=== PATIENT | female | born 1965 | race Caucasian/White ===

== ENCOUNTER 2024-07-15 21:26 | Emergency (ER) | payer BC, SELFPAY ==
[2024-07-15 21:53] VITALS: BP 150/90; PULSE 79; O2SAT 98; BMI 37.8
--- NOTE | 2024-07-15 22:05 | PC.NURSE ---
reaching with right arm
[2024-07-15] MEDS: HYDROCODONE/ACET 5-325 MG TABLET 1 TAB PO (23:11)
[2024-07-15] MEDS: ONDANSETRON 4 MG RAPDIS TABLET SL (23:11)
[2024-07-15] MEDS: KETOROLAC TROMETHAMINE 60 MG/2 ML VIAL IM (23:11)
[2024-07-15] MEDS: ORPHENADRINE 60 MG/2 ML VIAL IM (23:12)
--- NOTE | 2024-07-15 23:12 | ED.BACK1 ---
HPI HPI - Back Pain/Injury General Chief Complaint: Back Pain/Injury Stated Complaint: back pain Time Seen by Provider: 07/15/24 22:34 Source: patient Mode of arrival: walk-in History of Present Illness HPI Narrative: This 58-year-old female presents for evaluation of right mid to lower flank pain that radiates around to her right lower quadrant and into her right buttock. The patient states the symptoms started around 11 PM today. She was working earlier today and doing a job that she does not usually do well though has been doing it more frequently recently. She does have to do a lot of pushing of heavy things at work. She denies any fall. She denies any loss of bowel or bladder control. She has some mild nausea but no vomiting. She denies any urinary symptoms or history of kidney stones. She has no weakness or numbness. No medications were taken prior to arrival. Related Data Allergies Allergy/AdvReac Type Severity Reaction Status Date / Time Penicillins Allergy Severe Anaphylaxis Verified 07/15/24 21:52 Opioid HPI Opioid Management Most Recent Opioid Data: Last Pain Scale 10 07/15/24 23:11 07/15/24 Review of Systems ROS Status of ROS 10 or more systems reviewed and unremarkable except as noted in history and below [facility] Medical History (Updated 07/15/24 @ 23:45 by Lisa Kaye MD) Arthritis ?M19.90 - Unspecified osteoarthritis, unspecified site (ICD-10) Social History Little interest or pleasure in doing things: not at all Feeling down, depressed, or hopeless: not at all Exam Narrative Exam Narrative: Vital signs and Nursing Notes reviewed: Patient has normal pulse, normal respiratory rate, blood pressure is elevated 150/90, she is not hypoxic with pulse ox of 98% on room air General: Awake, alert, oriented, mildly uncomfortable especially with movement on the stretcher, no respiratory distress HEENT: Normocephalic atraumatic, mucous membranes are moist and pink, eyes are clear, normal conjunctiva, vision is grossly intact, posterior pharynx is normal in appearance. Neck: Supple, nontender Chest: Lungs are clear to auscultation with good air entry, there is no wheezing rhonchi or rales appreciated no accessory muscle use, patient is speaking in complete sentences-no chest wall tenderness to palpation CVS: Regular rate and rhythm S1-S2, no murmurs rubs or gallops, pulses are brisk and equal bilaterally ABD: Obese, soft, nondistended, no reproducible tenderness in the right lower quadrant. Mild tenderness to palpation in the right lower lateral flank area. No buttock tenderness Extremities: Moving all extremities, no lower extremity tenderness or swelling noted, negative Homans' sign, pulses are brisk and equal bilaterally Skin: Normal in appearance without rash,pallor, petechiae or purpura Neuro: No focal deficits Constitutional Vital Signs, click to edit/add: Last Vital Signs Pulse 79 07/15/24 21:53 Resp 18 07/15/24 21:53 BP 150/90 H 07/15/24 21:53 Pulse Ox 98 07/15/24 21:53 O2 Del Method Room Air 07/15/24 21:53 Course Vital Signs Vital signs: Vital Signs Pulse Rate 79 07/15/24 21:53 Respiratory Rate 18 07/15/24 21:53 Blood Pressure 150/90 H 07/15/24 21:53 Pulse Oximetry 98 07/15/24 21:53 Oxygen Delivery Method Room Air 07/15/24 21:53 Pulse Rate 79 07/15/24 21:53 Respiratory Rate 18 07/15/24 21:53 Blood Pressure 150/90 H 07/15/24 21:53 Pulse Oximetry 98 07/15/24 21:53 Oxygen Delivery Method Room Air 07/15/24 21:53 MDM - Back Pain/Injury MDM Narrative Medical decision making narrative: This 50-year-old female presents for evaluation of right low back pain that radiates into her right buttock and around in her right lower quadrant that started around 11 PM. The patient has been doing more strenuous activity at work than normal. She has some mild nausea but no vomiting. Pain is worse with movement especially rotatory movement of the torso. She does not have any reproducible tenderness in her abdomen specifically over McBurney's point. He denies any history of kidney stones. She is not having any colicky symptoms. She denies any chest pain or shortness of breath. She has no lower extremity pain or swelling. She denies any weakness numbness or tingling. There is no neurologic symptoms related to her back pain. There is no saddle anesthesia or loss of bowel or bladder control. I was concerned that she may have a kidney stone due to the area of her pain but her urine is negative for blood. It is contaminated with squamous epithelial cells but does not show any signs of acute infection. She was medicated emergency department with IM Toradol, IM Norflex, [place] and Zofran. Evaluation she states she is feeling better and wishes to go home and go to bed. She was encouraged to rest, drink plenty of fluids, do gentle stretching, use moist heat and will be discharged home with prescription for [place], Zofran, Parafon forte and ibuprofen. She was also given a note for work for the next 2 days. She was discharged home with her significant other. Lab Data Labs: Lab Results 07/15/24 Range/Units 22:58 Urine Color Lt. yellow (YELLOW) Urine Clarity Clear (CLEAR) Urine pH 6.0 (5.0-9.0) Ur Specific Lithia <=1.005 A (1.005-1.025) Urine Protein Negative (NEG/TRACE) mg/dL Urine Glucose (UA) Negative (NEGATIVE) mg/dL Urine Ketones Negative (NEGATIVE) mg/dL Urine Occult Blood Negative (NEGATIVE) Urine Nitrite Negative (NEGATIVE) Urine Bilirubin Negative (NEGATIVE) Urine Urobilinogen 0.2 (0.2-1.0) EU/dL Ur Leukocyte Esterase Small A (NEGATIVE) Urine RBC 0-2 (0-2) #/HPF Urine WBC 5-10 A (NONE SEEN) #/HPF Ur Squamous Epith Cells Moderate A (NONE/RARE) #/LPF Ur Transition Epith Cell Rare A (NONE SEEN) #/LPF Urine Crystals None seen (None Seen) #/HPF Urine Bacteria None seen (NONE SEEN) #/HPF Urine Casts None seen (NONE SEEN) #/LPF Urine Mucus None seen (NONE SEEN) Ur Culture Indicated? Yes-[facility] [place] Discharge Plan Discharge Chief Complaint: Back Pain/Injury Clinical Impression: Strain of lumbar region Patient Disposition: Home, Self-Care Time of Disposition Decision: 23:44 Condition: Good Print Language: Arabic Instructions: Low Back Strain (ED), Lower Back Exercises (ED) Referrals: Physician,Non-Staff, MD [Primary Care Provider] - 1 week
[2024-07-15 23:15] LABS: Bilirubin Urine NEGATIVE (NEGATIVE); Blood Urine NEGATIVE (NEGATIVE); Clarity Urine CLEAR (CLEAR); Color Urine LT. YELLOW (YELLOW); Glucose Urine UA NEGATIVE (NEGATIVE); Ketones Urine NEGATIVE (NEGATIVE); Leukocyte Esterase Urine SMALL (NEGATIVE); Nitrite Urine NEGATIVE (NEGATIVE); Protein Urine NEGATIVE (NEG/TRACE); Specific Gravity Urine <=1.005 (1.005-1.025); Urobilinogen Urine 0.2 EU/dL (0.2-1.0)
[2024-07-15 23:22] LABS: Bacteria Urine NONE SEEN #/HPF (NONE SEEN); Cast Seen? NONE SEEN #/LPF (NONE SEEN); Crystals Seen? None Seen #/HPF (None Seen); Mucus Urine NONE SEEN (NONE SEEN); RBC Urine 0-2 #/HPF (0-2); Squamous Epithelial Cell Urine MODERATE #/LPF (NONE/RARE); Transitional Epi Cells Urine RARE #/LPF (NONE SEEN); Urine Culture Indicated YES-FRMC
[2024-07-15 23:55] VITALS: TEMP 36.7
== END 2024-07-15 23:56 | disposition home or self-care (01) ==
PROVIDERS: Emergency Provider Emergency Medicine
DX: S39.012A Strain of muscle, fascia and tendon of lower back, initial encounter (principal); X50.9XXA Other and unspecified overexertion or strenuous movements or postures, initial encounter
CPT/HCPCS: 81001; 87086; 96372; 99285; J1885; J2360; Q0162